=== PATIENT | female | born 1980 | race Caucasian/White ===

== ENCOUNTER 2020-12-12 18:00 | Emergency (ER) | payer SELFPAY ==
[~2020-12-12] VITALS: Ht 165.1 cm; Wt 68.1 kg
[2020-12-12 18:12] VITALS: BP 148/80
--- NOTE | 2020-12-12 19:01 | ED.ADGEN ---
Past Medical History Past Medical History: A-Fib, Endometriosis, Fibromyalgia, Heart Disease, Hepatitis Additional Past Medical Histor: NEUROPATHY,HEP C SPINAL STENOSIS Past Surgical History: Additional Past Surgical Histo: CARDIAC CATH,THROAT Smoking Status: Current Every Day Smoker Alcohol Use: Occasionally General Adult EDM: Chief Complaint: ABSCESS HPI: HPI: Patient is a 40 year old female coming in for abscess to left antecubital fossa. Was hospitalized at [facility] for sepsis and Covid. She had the wound I indeed and was discharged with clindamycin and Bactrim. 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 Patient states he had a subjective fever last night. Says the pain is now radiating to her elbow. Review of Systems: Review of Systems: All other systems within normal limits except for as noted in the HPI Current Medications: Current Medications Medications (Trade) Dose Ordered Sig/Michael Start Time Stop Time Status Last Admin Dose Admin Lidocaine/ Epinephrine (LIDOCAINE 2%-EPI 1:100,000 multi-dose) 20 ml 1X ONCE 12/12/20 19:15 12/12/20 19:16 DC 12/12/20 19:15 20 ML Allergies: Allergies: Allergies Coded Allergies Type Severity Reaction Last Updated Verified Penicillins Allergy Severe THROAT CLOSES 12/12/20 Yes Sulfa (Sulfonamide Antibiotics) Allergy Severe THROAT CLOSES 12/12/20 Yes ceftriaxone Allergy Severe THROAT CLOSES 12/12/20 Yes meloxicam Allergy Severe VOMITING 12/12/20 Yes Physical Exam: PE: Constitutional: Well developed, well nourished, no acute distress, non-toxic appearance. [] HENT: Normocephalic, atraumatic, bilateral external ears normal, nose normal. [] Eyes: PERRLA, conjunctiva normal, no discharge. [] Neck: No rigidity, supple, no stridor. [] Cardiovascular: Regular rate and rhythm, brisk cap refill [] Lungs & Thorax: Non labored symmetric respirations, no tachypnea or respiratory distress [] Abdomen: Soft, nondistended. Skin: Warm, dry, no erythema, no rash. 1.5 cm open wound on the occipital fossa with no drainage. Firm nodule on lateral aspect [] Back: Unremarkable Extremities: No deformities, range of motion grossly intact, no lower extremity edema [] Neurologic: Alert and oriented X 3, no focal deficits noted. [] Psychologic: Affect normal, judgement normal, mood normal. [] Current Patient Data: Vital Signs: Vital Signs Date Time Temp Pulse Resp B/P (MAP) Pulse Ox O2 Delivery O2 Flow Rate FiO2 12/12/20 18:12 98.1 63 22 148/80 (102) 99 Room Air 98.1 EKG: EKG: [] Heart Score: C/O Chest Pain: N/A Risk Factors: Risk Factors: DM, Current or recent (<one month) smoker, HTN, HLP, family history of CAD, obesity. Risk Scores: Score 0 - 3: 2.5% MACE over next 6 weeks - Discharge Home Score 4 - 6: 20.3% MACE over next 6 weeks - Admit for Clinical Observation Score 7 - 10: 72.7% MACE over next 6 weeks - Early Invasive Strategies Radiology/Procedures: Radiology/Procedures: Left elbow 3 views. HISTORY: Pain, infected 3 views were taken the left elbow. There is no fracture or bony destructive process. Fat pads at the elbow are not displaced. MRI could be of benefit to further evaluate any soft tissue infection. IMPRESSION: 1. No fracture or bony destructive process at the left elbow.[] Impression: Incision and drainage procedure note: Area anesthetized with 3 cc of 2% lidocaine with epinephrine. 11 blade scalpel was used. No purulent drainage, all old blood likely hematoma drained. Area decompressed. Irrigated with saline and iodine. Bandaged with compression dressing. Course & Med Decision Making: Course & Med Decision Making Pertinent Labs and Imaging studies reviewed. (See chart for details) [] Dragon Disclaimer: Dragon Disclaimer: This electronic medical record was generated, in whole or in part, using a voice recognition dictation system. Departure Departure Impression: Primary Impression: Encounter for incision and drainage procedure Disposition: DC HOME SELF CARE/HOMELESS Condition: STABLE Patient Instructions: Incision and Drainage, Care After LUPE ZHOU MD Dec 12, 2020 19:01
[2020-12-12] MEDS: LIDOCAINE 2%/EPI 1:100,000 20 ML VIAL. INJ ONE (19:15)
--- NOTE | 2020-12-12 19:17 | RAD ---
Left elbow 3 views. HISTORY: Pain, infected 3 views were taken the left elbow. There is no fracture or bony destructive process. Fat pads at the elbow are not displaced. MRI could be of benefit to further evaluate any soft tissue infection. IMPRESSION: 1. No fracture or bony destructive process at the left elbow. Electronically signed by: Jovan Goodman MD (12/12/2020 7:15 PM) [facility]
[2020-12-12] MEDS ORDERED: HYDROcodone/APAP 5/325MG 1 TAB TABLET ONE (20:26)
[2020-12-12] MEDS: HYDROcodone/APAP 5/325MG 1 TAB TABLET PO ONE (20:30)
== END 2020-12-12 20:40 | disposition home or self-care (01) ==
LOC: ER 18:00
DX: L02.414 Cutaneous abscess of left upper limb (principal); I48.91 Unspecified atrial fibrillation; F17.200 Nicotine dependence, unspecified, uncomplicated; Z86.79 Personal history of other diseases of the circulatory system; Z88.0 Allergy status to penicillin; Z88.1 Allergy status to other antibiotic agents; Z88.2 Allergy status to sulfonamides
CPT/HCPCS: 10060; 73080; 99283; J3490